=== PATIENT | female | born 2000 | race Caucasian/White ===

== ENCOUNTER 2024-08-24 01:26 | Emergency (ER) | payer OTHER ==
[~2024-08-24] VITALS: Ht 170.2 cm; Wt 109.1 kg
[2024-08-24 01:45] VITALS: BP 145/96; PULSE 73; RESP 18; TEMP 99.3; O2SAT 99
[2024-08-24] MEDS: METHOCARBAMOL 500 MG TABLET PO ONE (03:24)
[2024-08-24] MEDS: ACETAMINOPHEN 500 MG TABLET PO ONE (03:24)
[2024-08-24] MEDS: KETOROLAC TROMETHAMINE 30 MG/ML VIAL IM ONE (03:24)
[2024-08-24] MEDS ORDERED: METH-812 PO (04:11)
== END 2024-08-24 04:42 | disposition home or self-care (01) ==
LOC: EDBD 01:26 → EMS 01:26
DX: M25.551 Pain in right hip (principal); M79.601 Pain in right arm; V49.88XA Car occupant (driver) (passenger) injured in other specified transport accidents, initial encounter; Y93.89 Activity, other specified; Y92.410 Unspecified street and highway as the place of occurrence of the external cause; Y99.8 Other external cause status
CPT/HCPCS: 99283; 96372; J1885